=== PATIENT | male | born 1970 | race American Indian/Alaskan Native ===

== ENCOUNTER 2018-01-18 07:56 | Day surgery (SDC) | payer BC ==
[2018-01-18] MEDS ORDERED: DILAUDID IV PRN (07:57)
[2018-01-18] MEDS ORDERED: DEMEROL IV PRN (07:57)
[2018-01-18] MEDS ORDERED: ZOFRAN IV PRN (07:57)
[2018-01-18] MEDS ORDERED: LACTATED RINGERS 1,000 ML IV SCH ×2 (08:00)
[2018-01-18] MEDS ORDERED: VERSED IV NR (08:00)
--- NOTE | 2018-01-18 09:08 | Anesthesia Day of Surgery ---
Anesthesia Day of Surgery - Day of Surgery Patient Examined: Yes Patient H&P Reviewed: Yes Patient is NPO: Yes
--- NOTE | 2018-01-18 09:09 | Anesthesia Consultation ---
Anesthesia Consult and Med Hx Date of service: 01/18/18 - Airway Anesthetic Teeth Evaluation: Good ROM Head & Neck: Adequate Mental/Hyoid Distance: Adequate Mallampati Class: Class II Intubation Access Assessment: Probably Good - Pulmonary Exam CTA: Yes - Cardiac Exam Cardiac Exam: RRR - Pre-Operative Health Status ASA Pre-Surgery Classification: ASA2 Proposed Anesthetic Plan: General (GA with LMA ok, Denies GERD, Denies SOB, or CP) - Pulmonary Hx Smoking: No Hx Sleep Apnea: Yes (DX SLEEP APNEA WITH CPAP USE.) - Cardiovascular System Hx Hypertension: Yes (X 4 YRS) - Central Nervous System Hx Back Pain: Yes - Other Systems Hx Cancer: No
[2018-01-18] MEDS ORDERED: XYLOCAINE MPF 2% ONE (09:13)
[2018-01-18] MEDS ORDERED: DIPRIVAN 10 MG/ML IV ONE (09:13)
[2018-01-18] MEDS ORDERED: DECADRON ONE (09:14)
[2018-01-18] MEDS ORDERED: DILAUDID ONE (09:14)
[2018-01-18] MEDS ORDERED: ZOFRAN ONE (09:14)
[2018-01-18] MEDS ORDERED: SUBLIMAZE IV ONE (09:30)
--- NOTE | 2018-01-18 10:09 | Short Stay Summary ---
Short Stay Documentation Date of service: 01/18/18 - History H&P: obtained from office - Allergies and Medications Current Medications: Allergies No Known Allergies Allergy (Verified 01/17/18 11:25) Home Medications Medication Instructions Recorded Confirmed Last Taken Type Gabapentin [Neurontin] 300 mg PO QHS 01/17/18 01/17/18 01/17/18 History HYDROcodone/ACETAMINOPHEN 1 each PO PRN PRN 01/17/18 01/17/18 01/17/18 History [Hydrocodone-Acetamin 5-325 mg] Naproxen [Naprosyn] 500 mg PO PRN PRN 01/17/18 01/18/18 1 Week Ago History ~01/11/18 Sulfamethoxazole/Trimethoprim 1 each PO BID 01/17/18 01/17/18 01/17/18 History [Bactrim DS TAB] Tamsulosin HCl [Flomax] 0.4 mg PO DAILY 01/17/18 01/17/18 01/17/18 History amLODIPine [Norvasc] 5 mg PO DAILY 01/17/18 01/18/18 01/18/18 05:15 History Active Medications Hydromorphone HCl (Dilaudid) 0.5 mg IV Q10MIN PRN PRN Reason: Pain , Severe (7-10) Stop: 01/18/18 22:00 Lactated Ringer's (Lactated Ringers) 1,000 mls @ 100 mls/hr IV DIRECT JHON Last Admin: 01/18/18 09:10 Dose: 100 mls/hr Meperidine HCl (Demerol) 25 mg IV ONCE PRN PRN Reason: Shivering Stop: 01/18/18 15:00 Midazolam HCl (Versed) 2 mg IV PREOP NR Stop: 01/18/18 23:59 Last Admin: 01/18/18 09:11 Dose: 2 mg Ondansetron HCl (Zofran) 4 mg IV ONCE PRN PRN Reason: Nausea And Vomiting Stop: 01/18/18 15:00 - Brief post op/procedure progress note Date of procedure: 01/18/18 Pre-op diagnosis: left ureteral stones x 2---6mm Post-op diagnosis: same Procedure: eswl Anesthesia: SHAHEED Surgeon: LEXI WILL Estimated blood loss: none Condition: stable - Hospital course Hospital course: percocet 5 & post op info on chart - Disposition Condition at discharge: Stable Disposition: DC-01 TO HOME OR SELFCARE Short Stay Discharge Plan Follow up with: PRIMARY CARE, [Primary Care Provider] - 7 Days
[2018-01-18 12:00] VITALS: BP 114/77
--- NOTE | 2018-01-18 12:26 | Operative Report ---
PREOPERATIVE DIAGNOSIS: Left ureteral calculi x 2. POSTOPERATIVE DIAGNOSES: Left ureteral calculi x 2. PROCEDURE: Left extracorporal shock wave lithotripsy. SURGEON: Shahab Cheung MD ANESTHESIA: General. ESTIMATED BLOOD LOSS: Minimal. FLUIDS: Crystalloid. COMPLICATIONS: No complications. INDICATIONS: This patient is a 47-year-old gentleman who is seen by Dr. Silva in the office with two 6 mm stones in the renal pelvis. Based on previous x-ray, one was in the ureter and on was in the kidney; however, today, it looks like both are in the ureter. Discussed options, he agreed to proceed with surgical intervention. DESCRIPTION OF PROCEDURE: The patient was taken to the operative suite, placed in supine position. After adequate general anesthesia, the stones were localized in 2 planes using fluoroscopy. Extracorporal shock wave lithotripsy was administered with maximum kV of 8, 2500 shocks. Adequate fragmentation could be appreciated. He tolerated the procedure well and was extubated and taken to recovery room. He will go home on Percocet, given a strainer and follow up in the office. JOB# [id number] C/NTS
== END 2018-01-18 11:50 | disposition home or self-care (01) ==
LOC: OR 07:56
PROVIDERS: ATTEND Urology
DX: N20.1 Calculus of ureter (principal); G47.30 Sleep apnea, unspecified; I10 Essential (primary) hypertension; Z79.899 Other long term (current) drug therapy; Z99.89 Dependence on other enabling machines and devices
CPT/HCPCS: 50590; J1100; J1170; J2250; J2405; J2704; J3010; J7120